=== PATIENT | female | born 2000 | race African-American/Black ===

== ENCOUNTER 2019-06-05 22:01 | Emergency (ER) | payer SELFPAY ==
--- NOTE | 2019-06-05 23:23 | ER Document Report ---
ED Medical Screen (RME) - General Chief Complaint: Cough Stated Complaint: COUGH,HEADACHE,NAUSEA Time Seen by Provider: 06/05/19 23:20 Primary Care Provider: GALLO MEJIA MD [Primary Care Provider] - Follow up as needed Notes: 19-year-old female presents with productive cough with mucus and fever for the past 2-3 days. Lungs clear to auscultation bilaterally. Regular rate and rhythm. Patient has nonproductive cough in triage. I have greeted and performed a rapid initial assessment of this patient. A comprehensive ED assessment and evaluation of the patient, analysis of test results and completion of the medical decision making process with be conducted by additional ED providers. TRAVEL OUTSIDE OF THE [place] IN LAST 30 DAYS: No - Related Data Allergies/Adverse Reactions: No Known Allergies Allergy (Unverified 02/11/15 20:20) Past Medical History Past Surgical History: Reports: Hx Tonsillectomy - Immunizations Immunizations up to date: Yes Physical Exam - Vital signs Vitals: Temp Pulse Resp BP Pulse Ox 98.7 F 90 20 126/71 H 96 06/05/19 22:35 06/05/19 22:35 06/05/19 22:35 06/05/19 22:35 06/05/19 22:35 Course - Vital Signs Vital signs: Temp Pulse Resp BP Pulse Ox 98.7 F 90 20 126/71 H 96 06/05/19 22:35 06/05/19 22:35 06/05/19 22:35 06/05/19 22:35 06/05/19 22:35 Doctor's Discharge - Discharge Referrals: GALLO MEJIA MD [Primary Care Provider] - Follow up as needed
--- NOTE | 2019-06-05 23:52 | RADIOLOGY REPORT (SQ) ---
EXAM DESCRIPTION: XR CHEST 2 VIEWS COMPLETED DATE/TME: 06/05/2019 23:22 CLINICAL HISTORY: 19 years, Female, cough, fever EXAM DESCRIPTION: CLINICAL HISTORY: cough, fever COMPARISON: None. FINDINGS: Two views of the chest are submitted. Cardiac silhouette appears normal. No focal parenchymal or pleural disease. No acute bony abnormality. There is no significant pulmonary vascular engorgement. IMPRESSION: No evidence of acute cardiopulmonary disease.
[2019-06-06 00:06] LABS: A TYPE INFLUENZA AG NEGATIVE (NEGATIVE); B INFLUENZA AG NEGATIVE (NEGATIVE)
[2019-06-06 02:02] VITALS: BP 113/85
== END 2019-06-06 03:30 | disposition left against medical advice (07) ==
LOC: ER 22:01
DX: R05 Cough (principal); R50.9 Fever, unspecified
CPT/HCPCS: 71046; 87804; 99281

== ENCOUNTER → 2019-08-28 | Outpatient (CLI) | payer BC ==
--- NOTE | 2019-08-28 15:05 | RADIOLOGY REPORT (SQ) ---
EXAM DESCRIPTION: FINGERS LEFT IMAGES COMPLETED DATE/TIME: 08/28/2019 12:57 pm REASON FOR STUDY: INJURY OF LEFT MIDDLE FINGER S69.92XA UNSP INJURY OF LEFT WRIST, HAND AND FINGER( S), INIT COMPARISON: None. NUMBER OF VIEWS: Three views. TECHNIQUE: AP, lateral, and oblique images acquired of the left second finger. LIMITATIONS: None. FINDINGS: MINERALIZATION: Normal. BONES: Acute impacted nondisplaced and extraarticular fracture of the distal metaphysis of the 2nd mi ddle phalanx. SOFT TISSUES: Soft tissue swelling around the 2nd digit. OTHER: No other finding. IMPRESSION: Acute impacted nondisplaced and extraarticular fracture of the distal metaphysis of the 2nd middle phalanx. TECHNICAL DOCUMENTATION: JOB ID: [id number] 2010 [employer]- All Rights Reserved Reading location - IP/workstation name: [email or web address]
== END ==
LOC: OD 12:37
PROVIDERS: ATTEND Nurse Practitioner Family
DX: S62.668A Nondisplaced fracture of distal phalanx of other finger, initial encounter for closed fracture (principal); X58.XXXA Exposure to other specified factors, initial encounter

== ENCOUNTER 2020-04-08 15:51 | Emergency (ER) | payer SELFPAY ==
[2020-04-08] MEDS ORDERED: ALBUTEROL SULFATE HFA (90 MCG/PUFF) 8 GM MDI (1 MDI/ER DISP) IH ONE (18:28)
--- NOTE | 2020-04-08 19:15 | RADIOLOGY REPORT (SQ) ---
EXAM DESCRIPTION: CHEST SINGLE VIEW IMAGES COMPLETED DATE/TIME: 04/08/2020 7:04 pm REASON FOR STUDY: cough, dyspnea COMPARISON: 06/05/2019 EXAM PARAMETERS: NUMBER OF VIEWS: One view. TECHNIQUE: Single frontal radiographic view of the chest acquired. RADIATION DOSE: NA LIMITATIONS: None. FINDINGS: LUNGS AND PLEURA: No opacities, masses or pneumothorax. No pleural effusion. MEDIASTINUM AND HILAR STRUCTURES: No masses. Contour normal. HEART AND VASCULAR STRUCTURES: Heart normal in size. Normal vasculature. BONES: No acute findings. HARDWARE: None in the chest. OTHER: No other significant finding. IMPRESSION: NO ACUTE RADIOGRAPHIC FINDING IN THE CHEST. TECHNICAL DOCUMENTATION: JOB ID: [id number] 2010 [employer]- All Rights Reserved Reading location - IP/workstation name: [email or web address]
--- NOTE | 2020-04-08 21:23 | ER Document Report ---
ED General - General Chief Complaint: Breathing Difficulty Stated Complaint: SHORT OF BREATH Time Seen by Provider: 04/08/20 18:19 Primary Care Provider: ANITRA CARRASCO MD [Primary Care Provider] - Follow up as needed Mode of Arrival: Ambulatory Information source: Patient TRAVEL OUTSIDE OF THE [place] IN LAST 30 DAYS: No - HPI Notes: Shortness of breath a slight cough and a little bit of wheezing going on for 24 hours. Has a history of bronchitis in the past. 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 Non-smoker. No history of asthma or other chronic lung disease. Denies any fever or chills. No other systemic symptoms of illness. Denies . Only medication is oral contraceptives. Otherwise her usual state of health. - Related Data Allergies/Adverse Reactions: No Known Allergies Allergy (Verified 04/08/20 17:45) Past Medical History - Social History Smoking Status: Never Smoker Family History: Reviewed & Not Pertinent - Medical History Medical History: Negative Past Surgical History: Reports: Hx Tonsillectomy - Immunizations Immunizations up to date: Yes Review of Systems - Review of Systems Notes: ENT: Unremarkable for any nasal congestion or sore throat. Respiratory: HPI. Constitutional: No fever or chills. Physical Exam - Vital signs Vitals: Temp Pulse Resp BP Pulse Ox 98.4 F 81 18 140/77 H 98 04/08/20 16:16 04/08/20 16:16 04/08/20 16:16 04/08/20 16:16 04/08/20 16:16 - Notes Notes: General: Pleasant young lady in no acute distress. Vital signs and nursing chief complaint are reviewed. ENT: Unremarkable inspection. Neck: Supple no adenopathy. Chest: Normal configuration, lungs clear to auscultation all helms. Heart: Regular rate and rhythm no murmur. Abdomen: Soft nontender no muscular megaly. Extremities: Without clubbing cyanosis or edema. Course - Re-evaluation Re-evalutation: 04/08/20 21:20 Patient improved somewhat with an albuterol inhaler. Lung sounds were clear on reassessment. Chest x-ray is clear. Covid test is pending. Given her occupation I think is reasonable for him to quarantine at home for the next 10 days. Off work note given. She was sent home with inhaler to use 2 puffs every 4 hours as needed. She should follow-up with her primary care doctor if not improving. I also recommended she have a negative repeat Covid test before she considers returning to work. - Vital Signs Vital signs: Temp Pulse Resp BP Pulse Ox 98.4 F 81 18 140/77 H 98 04/08/20 16:16 04/08/20 16:16 04/08/20 16:16 04/08/20 16:16 04/08/20 16:16 - Diagnostic Test Radiology reviewed: Image reviewed, Reports reviewed Radiology results interpreted by me: 04/08/20 21:21 Chest X-Ray 04/08/20 18:25 IMPRESSION: NO ACUTE RADIOGRAPHIC FINDING IN THE CHEST. Discharge - Discharge Clinical Impression: Bronchitis Condition: Good Disposition: HOME, SELF-CARE Additional Instructions: Use the albuterol inhaler 2 puffs every 4 hours as needed. Quarantine at home for 10 days. Follow-up with your primary care doctor if not improving. We recommend that you have a second Covid test at the end of your 10-day dragan rantine and have negative results before you return to work. Return to the emergency department for reevaluation if any other concerning symptoms develop. Forms: Return to Work Referrals: ANITRA CARRASCO MD [Primary Care Provider] - Follow up as needed
[2020-04-08 21:48] VITALS: BP 123/72
== END 2020-04-08 21:48 | disposition home or self-care (01) ==
LOC: ER 15:51
DX: U07.1 COVID-19 (principal); J40 Bronchitis, not specified as acute or chronic; R06.02 Shortness of breath; R05 Cough
CPT/HCPCS: 99284; 87635; 71045; J3490; C9803

== ENCOUNTER 2020-04-13 22:45 | Emergency (ER) | payer SELFPAY ==
--- NOTE | 2020-04-14 00:44 | ER Document Report ---
ED General - General Chief Complaint: Headache Stated Complaint: MIGRAINE,RASH,LOSS OF APPETITE Time Seen by Provider: 04/14/20 00:39 Primary Care Provider: ANITRA CARRASCO MD [Primary Care Provider] - Follow up as needed TRAVEL OUTSIDE OF THE [place] IN LAST 30 DAYS: No - HPI Context: Time:339 Chief Complaint: [Headache, rash, decreased appetite and dyspnea] [This is a 19-year-old female with a history of reactive airway disease who presents to the emergency department with the above chief complaints. Patient states that she tested positive for Covid a few days ago. Patient states that "some days are better than others." Patient is referring to issues with shortness of breath, sense of taste and sense of smell. Patient states that her appetite is decreased as well and that whenever she does not feel well she tends to get migraines like the one she has now. Patient states she also has some type of rash but behind her right ear. Patient denies new perfumes, soaps, detergents, other chemicals or new foods that she might of come into contact with that could have caused a rash. Patient was seen here a few days ago and was prescribed a albuterol MDI but states that it tends to make her jittery. Patient just finished a Xopenex nebulizer treatment here in the emergency department and states it did not make her feel jittery or nauseated like the albuterol dies. ] History obtained from [patient] Symptoms began:[3 days ago] Onset: [Sudden] Timing: [Sudden] Quality: [Patient describes quality of headache is throbbing] Intensity: [Patient rates the headache as a 4 out of 5] Location: [Head, lungs, skin] Radiation: [Denies] [The pain does not migrate to a new location.] Aggravating factors: [none] Relieving factors: [none] Admits SOB [Denies] nausea [Denies] vomiting [Denies] sweats [Denies] fever [Denies] cough [Denies] calf or leg swelling or pain - Related Data Allergies/Adverse Reactions: No Known Allergies Allergy (Verified 04/08/20 17:45) Home Medications: Albuterol inhaler Past Medical History - General Information source: Patient - Social History Smoking Status: Never Smoker Family History: Reviewed & Not Pertinent Pulmonary Medical History: Reports: Other - Reactive airway disease Denies: Hx Asthma Past Surgical History: Reports: Hx Tonsillectomy - Immunizations Immunizations up to date: Yes Review of Systems - Review of Systems Notes: Review of systems as below unless otherwise stated in HPI. CONSTITUTIONAL [No] fever, [No] chills. EYES [No] eye pain. ENT [No] URI symptoms, [No] sore throat, [No] ear pain. CARDIOVASCULAR [No] chest pain, [No] palpitations, [No] edema. RESPIRATORY [No] Cough, positive SOB, [No] wheezing. GASTROINTESTINAL [No] abdominal pain, [No] nausea, [No] Diarrhea, [No] Vomiting, [No] constipation, [No] melena, [No] rectal bleeding. GENITOURINARY [No] dysuria, [No] urinary frequency, [No] hematuria, [No] urinary urgency, [No] vaginal discharge, [No] vaginal bleeding. MUSCULOSKELETAL [No] Back pain. SKIN Positive rash. NEUROLOGIC Positive headache, [No] recent seizures, [No] paralysis,[No] parathesias. ENDOCRINE [No] polyuria. HEMO/LYMPATIC [No] easy brusing PSYCHIATRIC [No] depression. Physical Exam - Vital signs Vitals: Temp Pulse Resp BP Pulse Ox 98.1 F 63 14 118/62 99 04/13/20 22:52 04/13/20 22:52 04/13/20 22:52 04/13/20 22:52 04/13/20 22:52 - Notes Notes: CONSTITUTIONAL [Vital signs reviewed, Patient appears comfortable, Alert and oriented X 3, Normal stature.] HEAD [Atraumatic, Normocephalic.] EYES [Eyes are normal to inspection, No discharge from eyes, Extraocular muscles intact, Sclera are normal, Conjunctiva are normal.] ENT [External ears normal to inspection, Nose examination normal, Mouth normal to inspection.] NECK [Normal ROM, No jugular venous distention, No meningeal signs, ] RESPIRATORY CHEST [Chest is nontender, Breath sounds normal, No respiratory distress.] CARDIOVASCULAR [RRR, No murmurs, Normal S1 S2, No rub, No gallop.] ABDOMEN [Abdomen is nontender, No pulsatile masses, No other masses, Bowel sounds normal, No distension, No peritoneal signs, No hernias.] BACK [There is no CVA Tenderness, There is no tenderness to palpation, Normal inspection.] UPPER EXTREMITY [Inspection normal, No cyanosis, No clubbing, No edema, LOWER EXTREMITY [Inspection normal, No cyanosis, No clubbing, No edema, No calf tenderness, NEURO [No focal motor deficits, No focal sensory deficits, Speech normal.] SKIN Patient has a collection of 4 erythematous papules behind her right ear. They are blanching. Appearances most consistent with hives. LYMPHATIC [No adenopathy in neck.] PSYCHIATRIC [Normal affect. ] Course - Re-evaluation Re-evalutation: 04/14/20 04:01 Patient states she is feeling better after her Xopenex treatment and fluids as well as headache medication. Diagnosis, plan of care, follow-up all discussed with patient. All questions were answered prior to discharge. Emergency signs and symptoms, reasons to return to the emergency department discussed with patient. - Vital Signs Vital signs: Temp Pulse Resp BP Pulse Ox 98.8 F 63 18 120/60 98 04/14/20 03:03 04/14/20 03:03 04/14/20 03:03 04/14/20 03:03 04/14/20 03:03 - Laboratory Results Critical Laboratory Results Reviewed: No Critical Results - Radiology Results Critical Radiology Results Reviewed: No Critical Results Discharge - Discharge Clinical Impression: COVID-19 virus infection, History of reactive airway disease Migraine headache Qualifiers: Migraine type: unspecified Status migrainosus presence: without status migrainosus Intractability: not intractable Qualified Code(s): G43.909 - Migraine, unspecified, not intractable, without status migrainosus Condition: Stable Disposition: HOME, SELF-CARE Additional Instructions: Return to the Emergency Department without delay if any worse. Current recommendations for patients with COVID-19 infection and symptoms include the following: Vitamin C 500 mg twice a day Quercetin 250-500mg twice a day Melatonin 6 to 12 mg at bedtime Vitamin D3 2000 to 4000 units daily Aspirin 81 to 325 mg daily Famotidine (Pepcid) 40 mg twice a day Do not use albuterol when using Xopenex HOME CARE INSTRUCTIONS & INFORMATION: Thank you for choosing us for your medical needs. We hope you're satisfied with the care you received. After you leave, you must properly care for your problem and, at the same time, observe its progress. Any condition can change. Some illnesses can change rapidly over hours or days. If your condition worsens, return to the Emergency Department or see your physician promptly. ABOUT YOUR X-RAYS AND EKG'S: If you had an EKG or X-rays taken, they have been read by the Emergency Physician. The X-rays and EKG's will also be read by a Radiologist or Radio Adjuster within 24 hours. If discrepancies are noted, you will be notified by telephone. Please be certain the ED has a correct telephone number & address where you can be reached. Also, realize that some fractures or abnormalities do not show up on initial X-rays. If your symptoms continue, see your physician. ABOUT YOUR LABORATORY TEST: If you had laboratory tests, the results have been reviewed by the Emergency Physician. Some test results (for example cultures) may not be available for several days. You will be contacted if any test result shows you need additional treatment. Please be certain the ED has a correct telephone number and address where you can be reached. ABOUT YOUR MEDICATIONS: You will receive instructions on how to take your medicine on the prescription label you receive. Additional information may be provided by the Pharmacy. If you have questions afterwards, call the ED for clarification or further instructions. Some prescribed medications may cause drowsiness. Do not perform tasks such as driving a car or operating machinery without consulting your Pharmacist. If you feel you need a refill of pain medication, your condition will need re-evaluation. Please do not call for a refill of any medication. ABOUT YOUR SIGNATURE: Signature of this document acknowledges to followin. Understanding that you received emergency treatment and that you may be released before al medical problems are known or treated. Please be certain the ED has a correct phone number & address where you can be reached. 2. Acknowledgement that you will arrange for follow-up care as recommended. 3. Authorization for the Emergency Physician to provide information to your follow-up Physician in order to maximize your care. AT ANY TIME, IF YOUR SYMPTOMS CHANGE SIGNIFICANTLY OR WORSEN OR YOU DEVELOP NEW SYMPTOMS, RETURN TO THE EMERGENCY DEPARTMENT IMMEDIATELY FOR RE-EVALUATION. OUR GOAL IS TO PROVIDE EXCELLENT MEDICAL CARE! WE HOPE THAT WE HAVE MET YOUR EXPECTATIONS DURING YOUR EMERGENCY DEPARTMENT VISIT AND THAT YOU FEEL YOU HAVE RECEIVED EXCELLENT CARE! Prescriptions: Levalbuterol Tartrate [Xopenex Hfa] 2 puff IH Q4HP PRN #1 [email or web address] PRN Reason: Dexamethasone [Decadron] 6 mg PO DAILY 7 Days #7 tablet Referrals: ANITRA CARRASCO MD [Primary Care Provider] - Follow up as needed
[2020-04-14] MEDS ORDERED: NORMAL SALINE 1000 ML 1,000 ML IV ONE (02:54)
[2020-04-14] MEDS ORDERED: LEVALBUTEROL HCL NEB 1.25 MG/3 ML AMPUL NEB ONE (02:54)
[2020-04-14] MEDS ORDERED: DEXAMETHASONE SOD PHOS INJ 10 MG/1 ML VIAL IV ONE (02:55)
[2020-04-14] MEDS ORDERED: ONDANSETRON HCL INJ/PF 4 MG/2 ML SDV IV ONE (02:55)
[2020-04-14] MEDS ORDERED: HYDROMORPHONE HCL INJ/PF 2 MG/ML AMPULE IV ONE (02:56)
[2020-04-14 04:16] VITALS: BP 126/65
== END 2020-04-14 04:21 | disposition home or self-care (01) ==
LOC: ER 22:45
DX: U07.1 COVID-19 (principal); G43.909 Migraine, unspecified, not intractable, without status migrainosus; R21 Rash and other nonspecific skin eruption; R63.0 Anorexia; R06.00 Dyspnea, unspecified; J45.909 Unspecified asthma, uncomplicated; Z79.899 Other long term (current) drug therapy
CPT/HCPCS: 94640; 99284; 96361; 96374; 96375; J1170; J2405; J7030; J1100; J7614